=== PATIENT | female | born 1980 | race Caucasian/White ===

== ENCOUNTER 2017-10-02 13:37 | Outpatient (CLI) | payer SELFPAY, MEDICAID ==
[2017-10-02 14:28] LABS: ADD MAN DIFF? NO
[2017-10-02 14:29] LABS: WHITE BLOOD COUNT 7.1 10^3/ul (4.8-10.8)
[2017-10-02 14:29] LABS: BASOPHILS % 0.3 % (0.0-2.0); EOSINOPHILS # 0.1 10^3/ul (0.0-0.5); EOSINOPHILS % 0.7 % (0.0-7.0); HEMOGLOBIN 10.5 g/dl (12.0-16.0); LYMPHOCYTES # 1.3 10^3/ul (0.8-2.9); LYMPHOCYTES % 17.6 % (15.0-51.0); MEAN CORPUSCULAR HEMOGLOBIN 31.1 pg (29.0-33.0); MEAN CORPUSCULAR HGB CONC 33.9 g/dl (32.0-37.0); MEAN CORPUSCULAR VOLUME 91.7 fl (82.0-101.0); MEAN PLATELET VOLUME 9.7 fl (7.4-10.4); MONOCYTE # 0.5 10^3/ul (0.3-0.9); MONOCYTES % 6.9 % (0.0-11.0); NEUTROPHIL # 5.3 10^3/ul (1.6-7.5); NEUTROPHILS % 74.1 % (39.0-77.0); PLATELET COUNT 281 10^3/UL (140-415); RED BLOOD COUNT 3.38 10^6/ul (4.20-5.40); RED CELL DISTRIBUTION WIDTH 13.6 % (11.5-14.5)
[2017-10-02 14:39] LABS: ADD UMIC YES; UR ASCORBIC ACID NEGATIVE (NEGATIVE); UR BACTERIA FEW /HPF (NONE SEEN); UR BILIRUBIN (Dip) NEGATIVE (NEGATIVE); UR BLOOD (Dip) NEGATIVE (NEGATIVE); UR CLARITY SLIGHTLY CLOUDY (CLEAR); UR COLOR AMBER (YELLOW); UR GLUCOSE (Dip) NEGATIVE (NEGATIVE); UR KETONES (Dip) NEGATIVE (NEGATIVE); UR LEUKOCYTE ESTERASE (Dip) NEGATIVE Leu/ul (NEGATIVE); UR MUCUS MODERATE /HPF (NONE SEEN); UR NITRITE (Dip) NEGATIVE (NEGATIVE); UR RBC 2 /HPF (0-5); UR SPECIFIC GRAVITY (Dip) 1.028 (1.003-1.030); UR SQUAMOUS EPITHELIAL CELL FEW /HPF (FEW); UR TOTAL PROTEIN (Dip) 3+ mg/dl (NEGATIVE); UR UROBILINOGEN (Dip) 1+ mg/dL (NEGATIVE); UR WBC 6 /HPF (0-5)
[2017-10-02 14:49] LABS: ALANINE AMINOTRANSFERASE 13 IU/L (13-69); ALBUMIN 3.6 g/dl (3.3-4.9); ALBUMIN/GLOBULIN RATIO 1.09; ALKALINE PHOSPHATASE 65 IU/L (42-121); ANION GAP 10 (8-16); ASPARTATE AMINO TRANSFERASE 13 IU/L (15-46); BILIRUBIN,INDIRECT 0.7 mg/dl (0-1.1); BILIRUBIN,TOTAL 0.7 mg/dl (0.2-1.3); BLOOD UREA NITROGEN 8 mg/dl (7-20); CALCIUM 8.8 mg/dl (8.4-10.2); CARBON DIOXIDE 23 mmol/L (21-31); CHLORIDE 108 mmol/L (97-110); CREATININE 0.47 mg/dl (0.44-1.00); GLUCOSE 84 mg/dl (70-220); POTASSIUM 3.9 mmol/L (3.5-5.1); SODIUM 137 mmol/L (135-144); TOTAL PROTEIN 6.9 g/dl (6.1-8.1)
[2017-10-02 15:34] LABS: URIC ACID 3.9 mg/dl (3.1-7.9)
== END 2017-10-02 16:57 | disposition home or self-care (01) ==
LOC: OBT 13:37 → L-D 13:37 → OBT 16:57
DX: O26.892 Other specified pregnancy related conditions, second trimester (principal); R51 Headache; O21.0 Mild hyperemesis gravidarum; Z3A.25 25 weeks gestation of pregnancy
CPT/HCPCS: 76817; 80053; 81001; 84560; 85025; 87086

== ENCOUNTER 2018-01-12 17:22 | Inpatient (IN) | payer BC, MEDICAID ==
[2018-01-12 19:46] LABS: RUPTURE FETAL MEMBRANES NEGATIVE (NEGATIVE)
[2018-01-12] MEDS ORDERED: METHYLERGONOVINE 0.2 MG INJ IM (21:00)
[2018-01-12] MEDS ORDERED: CARBOPROST 250 MCG INJ IM (21:00)
[2018-01-12] MEDS ORDERED: OXYTOCIN 30 UNITS/LR 500 ML IV ×2 (21:00)
[2018-01-12] MEDS ORDERED: MISOPROSTOL 200 MCG TAB PR (21:00)
[2018-01-12] MEDS: LACTATED RINGER'S 1,000 ML IV (21:36)
[2018-01-12 21:58] LABS: ADD MAN DIFF? NO
[2018-01-12 22:06] LABS: BASOPHILS % 0.2 % (0.0-2.0); EOSINOPHILS % 0.4 % (0.0-7.0); HEMATOCRIT 39.7 % (37.0-47.0); HEMOGLOBIN 13.3 g/dl (12.0-16.0); LYMPHOCYTES # 1.8 10^3/ul (0.8-2.9); MEAN CORPUSCULAR HEMOGLOBIN 29.8 pg (29.0-33.0); MEAN CORPUSCULAR HGB CONC 33.5 g/dl (32.0-37.0); MEAN PLATELET VOLUME 11.5 fl (7.4-10.4); MONOCYTE # 0.5 10^3/ul (0.3-0.9); MONOCYTES % 5.5 % (0.0-11.0); NEUTROPHIL # 6.6 10^3/ul (1.6-7.5); NEUTROPHILS % 73.5 % (39.0-77.0); PLATELET COUNT 264 10^3/UL (140-415); RED BLOOD COUNT 4.46 10^6/ul (4.20-5.40); RED CELL DISTRIBUTION WIDTH 13.6 % (11.5-14.5)
[2018-01-12 22:26] LABS: INR 0.92; PROTIME 12.4 Sec (11.9-14.9)
[2018-01-12 22:27] LABS: PARTIAL THROMBOPLASTIN TIME 28.9 Sec (23.0-35.0)
[2018-01-12 23:01] LABS: HEPATITIS B SURFACE ANTIGEN NEGATIVE (NEGATIVE)
[2018-01-12 23:11] LABS: HIV 1&2 ANTIBODY NEGATIVE (NEGATIVE)
[2018-01-12] MEDS: METOCLOPRAMIDE 10 MG INJ IV (23:59)
[2018-01-13] MEDS: FAMOTIDINE 20 MG INJ IV (00:01)
[2018-01-13] MEDS: CITRIC ACID/NA CITRATE 30 ML CUP PO (00:09)
[2018-01-13] MEDS ORDERED: morphine SULFATE/PF (10 MG/10 ML) INJ (00:24)
[2018-01-13 00:28] LABS: ADD UMIC YES; UR ASCORBIC ACID NEGATIVE (NEGATIVE); UR BILIRUBIN (Dip) 1+ mg/dL (NEGATIVE); UR BLOOD (Dip) NEGATIVE (NEGATIVE); UR CLARITY CLOUDY (CLEAR); UR COLOR AMBER (YELLOW); UR GLUCOSE (Dip) NEGATIVE (NEGATIVE); UR HYALINE CAST FEW /HPF (NONE SEEN); UR KETONES (Dip) NEGATIVE (NEGATIVE); UR LEUKOCYTE ESTERASE (Dip) NEGATIVE Leu/ul (NEGATIVE); UR MUCUS MANY /HPF (NONE SEEN); UR NITRITE (Dip) NEGATIVE (NEGATIVE); UR RBC 2 /HPF (0-5); UR SQUAMOUS EPITHELIAL CELL MODERATE /HPF (FEW); UR TOTAL PROTEIN (Dip) 1+ mg/dl (NEGATIVE); UR UROBILINOGEN (Dip) 1+ mg/dL (NEGATIVE); UR WBC 4 /HPF (0-5)
[2018-01-13] MEDS ORDERED: PHENYLephrine (100 MCG/ML) 5ML SYG (00:34)
[2018-01-13] MEDS ORDERED: ONDANSETRON 4 MG INJ (00:59)
[2018-01-13] MEDS ORDERED: PROCHLORPERAZINE 10 MG INJ IV (01:00)
[2018-01-13] MEDS ORDERED: MEPERIDINE 25 MG INJ IV (01:00)
[2018-01-13] MEDS ORDERED: ONDANSETRON 4 MG INJ IV ×2 (01:00→02:30)
[2018-01-13] MEDS ORDERED: KETOROLAC 30 MG INJ IV (01:00)
[2018-01-13] MEDS ORDERED: FENTAnyl 50 MCG/ML VIAL IV ×3 (01:00)
[2018-01-13] MEDS ORDERED: DIPHENHYDRAMINE 50 MG INJ IV ×2 (01:00→02:30)
[2018-01-13] MEDS ORDERED: HYDROmorphONE 1 MG/5 ML IV SYRINGE IV ×3 (01:00)
[2018-01-13 01:22] LABS: HEPATITIS B SURFACE ANTIGEN NEGATIVE (NEGATIVE)
[2018-01-13] MEDS: CEFAZOLIN 2 GM/50 ML (PMX) 50 ML IVPB (01:22)
[2018-01-13 01:32] LABS: HIV 1&2 ANTIBODY NEGATIVE (NEGATIVE)
[2018-01-13] MEDS ORDERED: OXYTOCIN 30 UNITS/LR 500 ML IV ×2 (01:39→02:00)
[2018-01-13] MEDS ORDERED: EPHEDrine SULFATE 50 MG/5 ML SYG (01:41)
[2018-01-13] MEDS ORDERED: DEXTROSE 5%-LR 1,000 ML IV (01:57)
[2018-01-13] MEDS ORDERED: METHYLERGONOVINE 0.2 MG TAB PO (02:00)
[2018-01-13] MEDS ORDERED: MISOPROSTOL 200 MCG TAB PR (02:00)
[2018-01-13] MEDS ORDERED: CARBOPROST 250 MCG INJ IM (02:00)
[2018-01-13] MEDS ORDERED: OXYCODONE/ACETAMINOPHEN (5/325) TAB PO (02:00)
[2018-01-13] MEDS ORDERED: LANOLIN 7 GM TUBE TOP (02:00)
[2018-01-13] MEDS ORDERED: METHYLERGONOVINE 0.2 MG INJ IM (02:00)
[2018-01-13] MEDS ORDERED: ZOLPIDEM 5 MG TAB PO (02:30)
[2018-01-13] MEDS ORDERED: NALOXONE (0.4 MG/ML) INJ IV (02:30)
[2018-01-13] MEDS ORDERED: HYDROmorphONE 0.5 MG/0.5 ML SYG IV ×2 (02:30)
[2018-01-13] MEDS: OXYTOCIN 30 UNITS/LR 500 ML IV (04:36)
[2018-01-13 06:10] LABS: AMPHETAMINE/METHAMPHETAMINE Negative (NEGATIVE); BARBITURATES Negative (NEGATIVE); BENZODIAZEPINES Negative (NEGATIVE); CANNABINOIDS Negative (NEGATIVE); COCAINE Negative (NEGATIVE)
[2018-01-13 06:22] LABS: OPIATES Positive (NEGATIVE)
[2018-01-13] MEDS: SENNA/DOCUSATE NA (8.6MG/50MG) TAB PO ×2 (09:39→21:02)
[2018-01-13] MEDS ORDERED: INFLUENZA VIRUS VACCINE 0.5 ML (DISPENSING) IM* (10:00)
[2018-01-13] MEDS: LACTATED RINGER'S 1,000 ML IV (14:25)
[2018-01-13 19:31] LABS: RAPID PLASMA REAGIN NONREACTIVE (NR)
[2018-01-13] MEDS: HYDROCODONE/APAP (5/325) TAB PO (23:50)
[2018-01-13] MEDS ORDERED: HYDROCODONE/APAP (5/325) TAB PO (23:50)
[2018-01-14] MEDS: KETOROLAC 30 MG INJ IV (00:58)
[2018-01-14] MEDS: IBUPROFEN 800 MG TAB PO ×4 (04:00→21:37)
[2018-01-14] MEDS: HYDROCODONE/APAP (5/325) TAB PO ×3 (06:10→21:37)
[2018-01-14 08:23] LABS: ADD MAN DIFF? NO
[2018-01-14 08:28] LABS: BASOPHILS % 0.3 % (0.0-2.0); EOSINOPHILS # 0.1 10^3/ul (0.0-0.5); EOSINOPHILS % 1.2 % (0.0-7.0); HEMATOCRIT 28.5 % (37.0-47.0); HEMOGLOBIN 9.5 g/dl (12.0-16.0); LYMPHOCYTES # 1.7 10^3/ul (0.8-2.9); LYMPHOCYTES % 23.1 % (15.0-51.0); MEAN CORPUSCULAR HEMOGLOBIN 30.4 pg (29.0-33.0); MEAN CORPUSCULAR HGB CONC 33.3 g/dl (32.0-37.0); MEAN CORPUSCULAR VOLUME 91.1 fl (82.0-101.0); MEAN PLATELET VOLUME 10.6 fl (7.4-10.4); MONOCYTE # 0.6 10^3/ul (0.3-0.9); MONOCYTES % 8.1 % (0.0-11.0); NEUTROPHILS % 66.8 % (39.0-77.0); PLATELET COUNT 204 10^3/UL (140-415); RED BLOOD COUNT 3.13 10^6/ul (4.20-5.40); RED CELL DISTRIBUTION WIDTH 13.5 % (11.5-14.5)
[2018-01-14 08:28] LABS: WHITE BLOOD COUNT 7.5 10^3/ul (4.8-10.8)
[2018-01-14] MEDS: SENNA/DOCUSATE NA (8.6MG/50MG) TAB PO ×2 (09:30→21:37)
[2018-01-15] MEDS: HYDROCODONE/APAP (5/325) TAB PO ×3 (05:36→21:54)
[2018-01-15] MEDS: IBUPROFEN 800 MG TAB PO ×3 (05:36→21:53)
[2018-01-15] MEDS: SENNA/DOCUSATE NA (8.6MG/50MG) TAB PO ×2 (08:47→21:08)
[2018-01-15] MEDS: MAGNESIUM HYDROXIDE 30ML CUP PO (12:02)
[2018-01-16] MEDS: HYDROCODONE/APAP (5/325) TAB PO ×2 (06:11→14:46)
[2018-01-16] MEDS: IBUPROFEN 800 MG TAB PO ×2 (06:11→14:46)
[2018-01-16] MEDS: SENNA/DOCUSATE NA (8.6MG/50MG) TAB PO (08:47)
[2018-01-16] MEDS: DIPHTH/TET/ACEL PERTUSS (ADULT) 0.5 ML VIAL IM* (08:49)
[2018-01-16] MEDS: MEASLES,MUMPS,RUBELLA VACCINE INJ SC* (09:00)
== END 2018-01-16 18:53 | disposition home or self-care (01) | DRG 788 ==
LOC: OBT 17:22 → L-D 01-13 00:02 → OBT 20:30 → PP1 01-13 04:50 → L-D 20:30
PROVIDERS: Obstetrics & Gynecology
PROC: 10D00Z1 Extraction of Products of Conception, Low, Open Approach (ICD-10-PCS; principal; 2018-01-13)
DX: O34.211 Maternal care for low transverse scar from previous cesarean delivery (principal); O90.81 Anemia of the puerperium; D64.9 Anemia, unspecified; Z3A.39 39 weeks gestation of pregnancy; Z37.0 Single live birth
CPT/HCPCS: 76815; 76818; 80307; 81001; 84112; 85025; 85610; 85730; 86592; 86703; 86762; 86850; 86900; 86901; 87086; 87340; 90686; 90715; 99464

== ENCOUNTER 2018-08-10 09:14 | Emergency (ER) | payer MEDICAID ==
[2018-08-10] MEDS: SOD CHLORIDE 0.9% 1,000 ML IV (10:28)
[2018-08-10 10:35] LABS: URINE PH (Dip) POC 5.5 (5.0-8.5)
[2018-08-10 10:35] LABS: URINE BLOOD (Dip) POC 3+ (NEGATIVE); URINE GLUCOSE (Dip) POC Negative (NEGATIVE); URINE KETONES (Dip) POC Negative (NEGATIVE); URINE LEUKOCYTE EST (Dip) POC Negative (NEGATIVE); URINE NITRITE (Dip) POC Negative (NEGATIVE); URINE TOTAL PROTEIN POC 1+ (NEGATIVE)
[2018-08-10] MEDS: KETOROLAC 30 MG INJ IV (10:36)
[2018-08-10] MEDS: ONDANSETRON 4 MG INJ IV (10:36)
[2018-08-10] MEDS ORDERED: ACETAMINOPHEN 1000MG/100ML IV 100 ML IVPB (11:30)
[2018-08-10] MEDS: ACETAMINOPHEN 500 MG TAB PO (11:34)
[2018-08-10] MEDS ORDERED: SOD CHLORIDE 0.9% 1,000 ML IV (11:53)
[2018-08-10] MEDS: morphine 4 MG/ML VIAL IV (12:18)
[2018-08-10] MEDS: SOD CHLORIDE 0.9% 500 ML IV (12:19)
== END 2018-08-11 03:16 | disposition home or self-care (01) ==
LOC: FTE 08-11 03:16
DX: R51 Headache (principal); R11.0 Nausea
CPT/HCPCS: 70450; 81003; 81025; 96361; 96374; 96375; 99285-25

== ENCOUNTER 2018-10-04 15:16 | Emergency (ER) | payer MEDICAID | END 2018-10-04 15:29 | disposition home or self-care (01) | LOC: E/R 15:29 | DX: R21 Rash and other nonspecific skin eruption (principal) | CPT/HCPCS: 99282 ==